=== PATIENT | male | born 1975 | race Caucasian/White ===

== ENCOUNTER 2024-08-05 12:05 | Outpatient (REF) | payer MEDICAID, SELFPAY ==
--- NOTE | ~2024-08-05 | XR_ITS ---
EXAMINATION: XR HAND, RIGHT. XR WRIST, RIGHT. CLINICAL INFORMATION: Injury COMPARISON: None. TECHNIQUE: 3 views of the right hand and wrist FINDINGS: Comminuted fracture of the 5th metacarpal head with volar/radial angulation and probable intra-articular extension into the 5th MCP joint. There are no additional fractures. XR/XR hand RT min 3V IMPRESSION: Comminuted fracture of the 5th metacarpal head with volar/radial angulation and probable intra-articular extension. Electronically signed by: Nathan Stallings MD 08/05/2024 03:06 PM EDT
== END 2024-08-05 12:06 | disposition home or self-care (01) ==
LOC: HO.HHCX 12:05
PROVIDERS: Visit Provider Emergency Medicine
DX: M79.641 Pain in right hand (principal); S69.91XD Unspecified injury of right wrist, hand and finger(s), subsequent encounter
CPT/HCPCS: 73130

== ENCOUNTER 2024-08-05 13:14 | Emergency (ER) | payer MEDICAID, SELFPAY ==
--- NOTE | ~2024-08-05 | XR_ITS ---
EXAMINATION: XR HAND, RIGHT. XR WRIST, RIGHT. CLINICAL INFORMATION: Injury COMPARISON: None. TECHNIQUE: 3 views of the right hand and wrist FINDINGS: Comminuted fracture of the 5th metacarpal head with volar/radial angulation and probable intra-articular extension into the 5th MCP joint. There are no additional fractures. XR/XR hand wrist RT IMPRESSION: Comminuted fracture of the 5th metacarpal head with volar/radial angulation and probable intra-articular extension. Electronically signed by: Nathan Stallings MD 08/05/2024 03:06 PM EDT
[2024-08-05 14:24] VITALS: BP 108/68; PULSE 76; RESP 20; TEMP 36.9; O2SAT 97; BMI 26.6
--- NOTE | 2024-08-05 14:24 | ED_ITS ---
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 Reports that 2 days ago he was walking not paying attention where he was going and tripped landing onto his right side with his hand hitting against the ground. He has localized swelling over the 5th MCP pain with movement of the digits. Denies numbness tingling or cold sensation to the hand. Denies history of prior injury to this hand. Reports he is right-hand dominant. Related Data Previous Rx's ?Medication ?Instructions ?Recorded oxycodone 5 mg tablet 5 mg PO Q6H PRN pain #7 tabs 08/05/24 Allergies Allergy/AdvReac Type Severity Reaction Status Date / Time No Known Allergies Allergy Verified 08/05/24 14:29 Review of Systems Review of Systems: Yes all other systems are reviewed and are negative [facility] Past Medical History Attestation statement: The following information was validated with the patient. Source: old records reviewed Social History Social History Advance Directives: No Advance Directives Information Provided: No Physical Exam ED Vital Signs: Vital Signs - 24 hr 08/05/24 14:24 08/05/24 19:28 Temperature 98.5 F 98.5 F Pulse Rate 76 76 Respiratory Rate 20 20 Blood Pressure 108/68 108/68 Pulse Oximetry 97 97 Oxygen Delivery Method Room Air Room Air BMI result Body Mass Index 26.6 Appearance: Alert.?Oriented to person, place and time. No acute distre ss.?Normal affect. Neck: Normal inspection.? Neck supple.?? CVS: Heart sounds normal. Normal heart rate and rhythm.? Pulses normal.?? Respiratory: No respiratory distress.? Lung sounds clear to auscultation bilaterally??? Skin: Skin warm and dry.? Normal skin color.? Extremities: Localized swelling over the 5th MCP with significant tenderness upon palpation. 2+ radial pulse Neuro: Moves all extremities spontaneously. Sensation intact bilaterally. Ambulates with normal steady gait. Course Course Course Narrative: This is a rapid medical exam performed by Ximena Rodgers NP: Additional HPI, ROS, PE not included below will be deferred to primary provider. Patient is a 49-year-old right hand dominant male presenting with pain to right hand and wrist. Fell into a hole on Saturday on outstretched hand. Plan: xrays Procedures Orthopedic Splinting/Casting Injury #1: Side: right Upper Extremity Injury Location: hand Upper Extremity Immobilizer: ulnar gutter Medical Decision Making Medical Decision Making MDM Narrative: Patient is a 49-year-old male presents emergency department for evaluation of traumatic right hand pain as per HPI. XR imaging obtained reveals a comminuted intra-articular fracture of the 5th metacarpal head with angulation. Reviewed reduction with patient he adamantly refuses to have any attempt at reduction at this time. Requesting casting and to be referred to orthopedics. Extremity is neurovascularly intact distally. Placed in an ulnar gutter splint as per procedural portion of this note tolerated well without complication remained neurovascularly intact distally after application. Discussed conservative treatment. Pain management; acetaminophen/ibuprofen, oxycodone for severe pain unrelieved by either, [employer] reviewed no conflicts. Differential Diagnosis Differential Diagnoses: The differential diagnosis associated with the presentation includes (Fracture, dislocation, sprain) Independent Interpretation I performed an independent interpretation of an: Plain X-Ray (Comminuted 5th metacarpal fracture) Radiology Impression Discussion of test interpretation with radiology: I have reviewed the radiologist's reading. Radiologist Impression: XR/XR hand wrist RT IMPRESSION: Comminuted fracture of the 5th metacarpal head with volar/radial angulation and probable intra-articular extension. External Record Review External record reviewed: Outpatient record Prescription Management I considered prescription management with: Pain Medication (See narrative above) Discharge Plan Discharge Clinical Impression: Fracture of fifth metacarpal bone of right hand Patient Disposition: Home, Self-Care Instructions: Hand Fracture (ED) Additional Instructions: You can take ibuprofen 200 mg, 3 tablets (600mg) every 6-8 hours as needed for pain, in addition to Tylenol 500 mg, 2 tablets (1,000mg) every 4-6 hours as needed for pain, but not to exceed 3 doses daily (3,000mg).? For pain that is unrelieved by ibuprofen/acetaminophen you may take oxycodone. This is a narcotic medication. It may make you drowsy. You should not drive, d rink alcohol, or work while taking this medication. Please contact the orthopedic office first thing tomorrow morning to arrange for a follow-up appointment with the hand specialist. The splint must remain in place at all times. It can not get wet. Prescriptions: New oxycodone 5 mg tablet 5 mg PO Q6H PRN (Reason: pain) Qty: 7 0RF Rx Instructions: Partial Fill upon patient request. Referrals: Magali Raymundo MD [Physician] - Interventions: ED Discharge Assessment Last Done: 08/05/24 19:28 Discharge Date/Time: 08/05/24 19:29 Print Language: Uzbek
[2024-08-05 19:28] VITALS: BP 108/68; PULSE 76; RESP 20; TEMP 36.9; O2SAT 97
== END 2024-08-05 19:29 | disposition home or self-care (01) ==
PROVIDERS: Emergency Provider Emergency Medicine
DX: S62.306A Unspecified fracture of fifth metacarpal bone, right hand, initial encounter for closed fracture (principal); M25.531 Pain in right wrist; M79.641 Pain in right hand; W01.0XXA Fall on same level from slipping, tripping and stumbling without subsequent striking against object, initial encounter; Y93.89 Activity, other specified; Y92.89 Other specified places as the place of occurrence of the external cause; Y99.8 Other external cause status
CPT/HCPCS: 29125; 73110; 73130; 99283; 99284

== ENCOUNTER 2024-08-11 13:13 | Outpatient (REF) | payer MEDICAID, SELFPAY ==
--- NOTE | ~2024-08-11 | XR_ITS ---
EXAMINATION: XR HAND, RIGHT CLINICAL INFORMATION: M79.641 - Pain in right hand COMPARISON: X-ray dated August 05, 2024. TECHNIQUE: PA, lateral, and oblique views of the right hand. FINDINGS: Submitted for interpretation on October 19, 2024. Cortical disruption resulting in borderline angulation at the distal diaphysis of the fifth metacarpal. The carpal bones are intact. The phalanges are intact. XR/XR hand RT min 3V IMPRESSION: Volar displaced fracture distal diaphysis fifth metacarpal, right hand. No gross change. Electronically signed by: Obie Cueva MD 10/19/2024 11:10 AM EST
== END 2024-08-11 13:14 | disposition home or self-care (01) ==
LOC: HO.HOSX 13:13
PROVIDERS: Visit Provider Orthopaedic Surgery
DX: M79.641 Pain in right hand (principal); S62.336A Displaced fracture of neck of fifth metacarpal bone, right hand, initial encounter for closed fracture; R20.0 Anesthesia of skin; R20.2 Paresthesia of skin
CPT/HCPCS: 73130; 99202

== ENCOUNTER → 2024-08-11 13:25 | Outpatient (BNV) | payer MEDICAID, SELFPAY | PROVIDERS: Visit Provider Radiology Diagnostic Radiology | DX: S62.306A Unspecified fracture of fifth metacarpal bone, right hand, initial encounter for closed fracture (principal) | CPT/HCPCS: 73130 ==

== ENCOUNTER 2024-08-11 13:44 | Outpatient (AMB) | payer MEDICAID, SELFPAY ==
[2024-08-11 14:40] VITALS: BMI 26.6
--- NOTE | 2024-08-11 14:40 | A.OFFVIS_ITS ---
Vital Signs 08/11/24 14:40 Height 5 ft 6 in Weight 165 lb BMI 26.6 Intake Visit Reasons: FC- fx of the 5th metacarpal head with angulation Intake Note: Vick is a 49 yo right hand dominant male who presents today for an ED follow up evaluation s/p right 5th metacarpal head fracture with angulation, DOI 08/03/24. Patient reports he was walking when he fell in a whole, landing on his right hand. Patient reports numbness and tingling on the ulnar aspect of the right hand as well as constant pain. He has been taking Ibuprofen for pain with minimal relief. Patient shared he fractured his right wrist when he was about 10 years old. Stitcher Tape Controlled Machine Required: Yes Stitcher Tape Controlled Machine Language: Catcher Plug Services: Stitcher Tape Controlled Machine Present Stitcher Tape Controlled Machine Name: LINWOOD Uriarte/HIMANSHU Allergies No Known Allergies Allergy (Verified 08/11/24 15:00) HPI HPI FC- fx of the 5th metacarpal head with angulation: Details: Vick is a 49 year old right hand dominant Moldovan speaking man who presents for a right 5th metacarpal fracture. He fell and landed injuring his right hand, DOI: 08/03/24. He was seen in the ED on 08/05/24 and placed in a splint. He complains of constant pain & new numbness in the ulnar aspect of his hand. [facility] Social History (Updated 08/11/24 @ 15:06 by LINWOOD Olmedo) Current occupation: rt handed Review of Systems Const All systems reviewed & are unremarkable except as noted in HPI and below Physical Exam Vital Signs: BMI result Body Mass Index 26.6 Const General: cooperative, healthy appearing and no acute distress Orientation/consciousness: patient oriented x3 HEENT Head: Yes normocephalic and Yes atraumatic Eyes EOM: EOMs intact bilaterally Resp Effort & Inspection: normal respiratory effort and able to speak in complete sentences Cardio Jugular venous distension: no JVD Skin General skin exam: turgor normal Rashes: no rashes Neuro General: patient oriented x3 Extrem Other: Evaluation of Right Upper Extremity: The patient is alert, oriented, and in no acute distress Neuro: Median, Ulnar, Radial nerves motor and sensory intact and sensation is normal to the tips of all digits Vascular: Cap refill brisk ROM: He can [ ] Rotational mal-alignment, with the small finger held out in ABduction, and he is unable to move this much ~45 degrees apex dorsal angulation of the 5th metacarpal General: No Erythema or evidence of infection. Most tender over the 5th metacarpal head Tender over 5th CMC joint Tender over proximal aspect of wrist Radiographs: 3 views of the right hand were taken and viewed by me today in clinic. They show a 5th metacarpal neck fracture with ~45 degrees apex dorsal angulation & rotational mal-alignment, with a supination deformity of ~15 degrees. Psych Appearance: grossly normal Affect: normal affect Attitude: cooperative Assessment & Plan Assessment & Plan (1) Closed fracture of neck of fifth metacarpal bone of right hand: Code(s): S62.336A - Displaced fracture of neck of fifth metacarpal bone, right hand, initial encounter for closed fracture Category: Medical (2) Numbness and tingling in right hand: Code(s): R20.0 - Anesthesia of skin; R20.2 - Paresthesia of skin Category: Medical Plan Assessment & Plan: 1. Right 5th metacarpal neck fracture, with ~45 degrees apex dorsal angulation, rotational mal-alignment, and ~15 degrees supination deformity From a fall, DOI: 08/03/24 I educated him about this condition I discussed operative and non-operative treatment options I recommend surgery, and he is in agreement He was fitted for an ulnar gutter splint, to be worn until his DOS I discussed activity modification, he is to lift nothing heavier than a cellphone at this time The risks and benefits of operative treatment were discussed with the patient and the patient wishes to proceed with surgery. These risks include, but are not limited to risk of damage to blood vessels, nerves, tendons, infection, recurrence, incomplete relief of preoperative symptoms, persistent pain, possible need for further surgery and the risks associated with regional blocks and anesthesia. The plan is to take the patient to the operating room sometime in the next week for the following procedures: 1. Right 5th metacarpal ORIF, under general All of the preoperative paperwork including the consent was reviewed today. All the patient's questions were answered. The patient understands that they will be contacted by our work manager soon to schedule this procedure He denies Diabetes, blood thinners, asthma, heart, lung, kidney issues Scribed for Magali Raymundo MD by Sukumar Brink medical administrator, on 08/11/24 at 3:35 PM, EST. Orders: Orders XR hand RT min 3V 08/11/24 M79.641 - Pain in right hand Medications: Discontinued oxycodone Partial Fill upon patient request. Discontinued Reason: Patient no longer taking 5 mg PO Q6H PRN 7 tabs 0RF pain Coding Level of Care Code New Pt Level 4 (70230) Diagnoses Closed fracture of neck of fifth metacarpal bone of right hand S62.336A Numbness and tingling in right hand R20.0; R20.2
== END 2024-08-11 16:06 | disposition home or self-care (01) ==
PROVIDERS: Visit Provider Orthopaedic Surgery
DX: S62.336A Displaced fracture of neck of fifth metacarpal bone, right hand, initial encounter for closed fracture (principal); R20.0 Anesthesia of skin; R20.2 Paresthesia of skin
CPT/HCPCS: 99204

== ENCOUNTER 2025-02-09 16:07 | Emergency (ER) | payer MEDICAID, SELFPAY ==
--- NOTE | ~2025-02-09 | CT_ITS ---
CLINICAL HISTORY: LLQ L flank pain, N V CT abdomen and pelvis without IV contrast. COMPARISON: None FINDINGS: Partially visualized lung bases are unremarkable. Normal gallbladder. Noncontrast appearance of the liver, spleen, pancreas adrenal glands are unremarkable. No right-sided hydronephrosis. No right renal or ureteral calculus. Moderate left hydronephrosis. Nonobstructing 5 mm left renal calculus. Mild proximal left hydroureter. In the proximal left ureter there is a 3 mm ureteral calculus. More distal left ureter is contracted. Normal appendix. Mild distal colonic diverticulosis without evidence of diverticulitis. Moderate to large amount of stool present within the distal sigmoid colon and rectum. No mesenteric or retroperitoneal lymphadenopathy. Normal abdominal aorta. Urinary bladder is contracted. No inguinal lymphadenopathy. Small fat containing umbilical hernia. No acute fracture or suspicious bone lesion. IMPRESSION: 1. Proximal left ureteral 3 mm calculus causes mild left hydroureter and moderate left hydronephrosis. 2. Additional nonobstructing 5 mm left renal calculus. 3. Fhengjkl-ih-swojp amount of stool present within the distal sigmoid colon and rectum. A component of fecal impaction may be present. This document has been electronically signed by: Julián Garcia MD on 02/09/2025 18:01:10
[2025-02-09 16:14] VITALS: BP 172/92; PULSE 62; O2SAT 97
[2025-02-09 16:17] VITALS: BP 107/45; PULSE 70; RESP 20; TEMP 36.6; O2SAT 97; BMI 27.1
--- NOTE | 2025-02-09 16:25 | ED.ABDPAIN ---
HPI - Abdominal Pain General Chief Complaint: Abdominal Pain Stated Complaint: ABD pain, yellow vomit Time Seen by Provider: 02/09/25 16:15 Source: patient, EMS, RN notes reviewed and old records reviewed Mode of arrival: EMS History of Present Illness ED Provider: Katya Escobar PA-C HPI narrative: 49-year-old male no significant past medical history presenting to the ED via EMS complaining of left-sided abdominal pain radiating to back with associated nausea and vomiting x 2 days. Denies similar symptoms in the past. Denies fever, chills, diarrhea/constipation, dysuria/hematuria Related Data Home Medications ?Medication ?Instructions ?Recorded ?Confirmed albuterol sulfate 90 mcg/actuation 2 puff inhalation Q4H PRN sob 08/14/24 aerosol inhaler (Ventolin HFA) nicotine 7 mg/24 hr daily 1 patch topical QAM 08/14/24 transdermal patch oxycodone 5 mg tablet 5 mg PO Q6H PRN pain 08/14/24 prednisone 20 mg tablet 40 mg PO DAILY 08/14/24 Previous Rx's ?Medication ?Instructions ?Recorded hydrocodone 5 mg-acetaminophen 325 1 tab PO Q8H PRN pain, severe 3 02/09/25 mg tablet days #9 tabs naproxen 500 mg tablet 500 mg PO BID PRN pain 10 days #20 02/09/25 tabs polyethylene glycol 3350 17 17 g PO DAILY #119 grams 02/09/25 gram/dose oral powder (Miralax) sodium phosphates 19 gram-7 118 ml [place] BEDTIME PRN constipation 02/09/25 gram/118 mL enema (Fleet Enema) #532 mL tamsulosin 0.4 mg capsule (Flomax) 0.4 mg PO DAILY #14 caps 02/09/25 Allergies Allergy/AdvReac Type Severity Reaction Status Date / Time No Known Allergies Allergy Verified 02/09/25 16:19 Review of Systems Review of Systems Yes all other systems are reviewed and are negative Constitutional: Reports as per [facility] Past Medical History Attestation statement: The following information was validated with the patient. Source: old records reviewed Social History Social History Advance Directives: No Advance Directives Information Provided: No Current occupation: rt handed Physical Exam ED Vital Signs: Vital Signs - 24 hr 02/09/25 16:17 02/09/25 18:03 02/09/25 18:52 Temperature 97.9 F Pulse Rate 70 Respiratory Rate 20 20 20 Blood Pressure 107/45 L Pulse Oximetry 97 Oxygen Delivery Method Room Air BMI result Body Mass Index 27.1 Const General: cooperative, healthy appearing and no acute distress Orientation/consciousness: patient oriented x3 Limitations: no limitations HENMT Head: Yes normal to inspection and Yes atraumatic Ears: hearing grossly normal bilaterally General nose exam: Normal external nose present Face and sinus: Yes normal facial exam Eyes General: appearance normal, both eyes and all related structures EOM: EOMs intact bilaterally Neck Neck: Yes normal visual inspection and Yes no meningeal signs Resp Effort & Inspection: normal respiratory effort and no respiratory distress Auscultation: clear to auscultation bilaterally Cardio Rate: regular rate Heart sounds: S1 normal heart sound present and S2 normal heart sound present GI Inspection: Yes normal to inspection Palpation (GI): Soft to palpation, Tenderness to palpation present (GI) in the LLQ; with no rebound tenderness, no guarding and not rigid General: Yes CVA tenderness on the left Back/Spine/Pelvis Back: CVA tenderness Skin Rashes: no rashes Wounds: no wounds Neuro General: patient oriented x3, tone normal and no meningeal signs Cranial nerves: Yes CN's II-XII intact bilaterally Gait exam (Neuro): Normal gait present Extrem General: Yes normal to inspection Course Course Course Narrative: -1815--leukocytosis of 13. Labs otherwise reassuring CT abdomen pelvis wo IV con IMPRESSION: 1. Proximal left ureteral 3 mm calculus causes mild left hydroureter and moderate left hydronephrosis. 2. Additional nonobstructing 5 mm left renal calculus. 3. [id number]-[id number] amount of stool present within the distal sigmoid colon and rectum. A component of fecal impaction may be present. > on re-evaluation patient reports continued discomfort. Will give additional morphine. Discussed stool burden and fecal impaction however patient not agreeable to disimpaction/rectal exam at this time. Discussed importance of having BMs. Recommended enema, MiraLax at home and if he does not have BM in the next 48 hours to return to the ED immediately Discussed needed urology follow-up. Will discharge with Flomax and pain control. 1899--ED care transferred to BUILDING DRAFTING OFFICER [place] pending UA and re-evaluation. Anticipated dispo. Medical Decision Making Medical Decision Making [facility] Narrative: 49-year-old male no significant past medical history presenting to the ED via EMS complaining of left-sided abdominal pain radiating to back with associated nausea and vomiting x 2 days. On exam vital signs stable, NAD, appears uncomfortable, writhing around in stretcher, abdomen is soft with LLQ tenderness and left CVAT, no rebound or guarding. Concern for renal stone vs UTI/pyelo vs diverticulitis. Lower suspicion for appendicitis, testicular torsion, cholecystitis/lithiasis or pancreatitis at this time Plan: Labs, UA, CT AP, IVF, symptomatic remedies, re-evaluate Please refer to course for remaining clinical decision making, interpretation of labs/imaging results, and discussions with consultants and/or family members. Differential Diagnosis Differential Diagnoses: The differential diagnosis associated with the presentation includes As above Admission/Observation Consideration of admission/observation: Escalation of care including admission/observation considered Lab Data [facility] Lab Attestation statement: I reviewed the patient's lab results. 02/09/25 16:48 02/09/25 16:48 Labs: Lab Results 02/09/25 Range/Units 16:48 WBC 13.0 H (4.8-10.8) X10*3/uL RBC 4.65 (4.60-5.80) X10*6/uL Hgb 14.7 (14.0-18.0) g/dl Hct 43.2 (42.0-52.0) % MCV 92.9 (80.0-98.0) fL MCH 31.6 (27.0-33.0) pg MCHC 34.0 (31.0-36.0) g/dl RDW 13.1 (11.0-16.0) % Plt Count 248 (160-400) X10*3/uL MPV 8.4 L (9.4-12.4) fL Immature Gran % (Auto) 0.3 (0.0-0.4) % Neut % (Auto) 90.4 H (45-73) % Lymph % (Auto) 5.9 L (20-40) % [place] % (Auto) 3.0 (2-11) % Eos % (Auto) 0.1 (0-4) % Baso % (Auto) 0.3 (0-2) % Lymph # (Auto) 0.8 L (1.2-4.9) X10*3/uL [place] # (Auto) 0.4 (0.1-1.2) X10*3/uL Eos # (Auto) 0.0 (0.0-0.4) X10*3/uL Baso # (Auto) 0.0 (0.0-0.2) X10*3/uL Abs Immat Gran (auto) 0.04 H (0.00-0.03) X10*3/uL Absolute Neuts (auto) 11.7 H (2.0-8.3) x10*3/uL Absolute Nucleated RBC 0.000 (0.0-0.012) X10*3/uL Nucleated RBC % (auto) 0.0 (0.0-0.2) /100WBC Smear Tech's Comments VERIFIED Sodium 138 (135-145) mmol/L Potassium 4.0 (3.3-5.1) mmol/L Chloride 107 (96-108) mmol/L Carbon Dioxide 25 (22-29) mmol/L Anion Gap 10 L (12-20) BUN 17 H (9-16) mg/dL Creatinine 1.02 (0.5-1.4) mg/dL Estim Creat Clear Calc 79.9 Estimated GFR > 60 Random Glucose 132 H (60-115) mg/dL Calcium 9.4 (8.4-10.2) mg/dL Magnesium 2.1 (1.6-2.6) mg/dL Total Bilirubin 0.3 (0.0-1.0) mg/dL Direct Bilirubin 0.1 (0.0-0.5) mg/dL AST 25 (5-37) U/L ALT 16 (0-40) U/L Alkaline Phosphatase 57 (39-117) U/L Total Protein 7.8 (6.5-8.0) g/dL Albumin 4.4 (3.5-5.0) g/dL Lipase 13 (8-78) U/L Independent Interpretation I performed an independent interpretation of an: CT Scan Radiology Impression Discussion of test interpretation with radiology: I have reviewed the radiologist's reading. Independent Historian Clinical information obtained from an independent historian. History obtained from or confirmed by: EMS External Record Review External record reviewed: Inpatient record, Office record, Outpatient record, Prior outpatient labs, Prior outpatient radiology, Primary care record and Outside ED record Tests considered The following testing was considered but not selected: As above Prescription Management I considered prescription management with: Pain Medication Chronic Conditions Patient?s care impacted by: Other Social Determinants Patient?s care significantly limited by Social Determinants of Health including: Other Social Determinant of Health Medications Administered Discontinued Medications Generic Name Dose Route Start Last Admin Trade Name Freq PRN Reason Stop Dose Admin Sodium Chloride 1,000 mls @ 999 mls/hr 02/09/25 16:45 02/09/25 17:51 Ns IV 02/09/25 17:45 Infused .Q1H1M FLORENCIO Infusion Ketorolac Tromethamine 15 mg 02/09/25 16:34 02/09/25 16:50 Ketorolac Tromethamine 15 Mg/Ml Vial IVPUSH 02/09/25 16:35 15 mg ONCE ONE Administration Morphine Sulfate 2 mg 02/09/25 18:00 02/09/25 18:03 Morphine Sulfate 2 Mg/Ml Cartridge IVPUSH 02/09/25 18:01 2 mg ONCE ONE Administration Protocol Morphine Sulfate 2 mg 02/09/25 18:36 02/09/25 18:52 Morphine Sulfate 2 Mg/Ml Cartridge IVPUSH 02/09/25 18:37 2 mg ONCE ONE Administration Protocol Ondansetron HCl 4 mg 02/09/25 16:34 02/09/25 16:50 Ondansetron Hcl 4 Mg/2 Ml Vial IVPUSH 02/09/25 16:35 4 mg ONCE ONE Administration Polyethylene Glycol 17 gm 02/09/25 18:36 02/09/25 18:52 Polyethylene Glycol 3350 17 Gm Powd.Pack PO 02/09/25 18:37 17 gm ONCE ONE Administration Tamsulosin HCl 0.4 mg 02/09/25 18:36 02/09/25 18:52 Tamsulosin Hcl 0.4 Mg Capsule PO 02/09/25 18:37 0.4 mg ONCE ONE Administration Discharge Plan Discharge Clinical Impression: Left ureteral stone, Constipation, Fecal impaction, Hydroureteronephrosis Patient Disposition: Still a Patient Instructions: Constipation (DC), Hydronephrosis (ED), Fecal Impaction (ED), Ureteral Stones (ED) Additional Instructions: You have a 3 mm proximal left ureter stone that is causing back flow of urine to your kidney. You also have a nonobstructing 5 mm stone inside your left kidney Flomax will help dilate the ureter to aid in passing Naproxen as an anti-inflammatory pain medication, take with food Pray as an opiate pain medication, take only when pain is severe for the next 3 days YOU NEED TO FOLLOW UP WITH UROLOGY FOR YOUR KIDNEY STONES, CALL TO MAKE AN APPOINTMENT If her symptoms persist or worsen, pain becomes unbearable, you have fever, nausea/vomiting or you are unable to urinate return to the ED immediately YOU ALSO HAVE LARGE AMOUNT OF STOOL/CONSTIPATION APPRECIATED ON CAT SCAN WELL A FECAL IMPACTION. Use enemas and MiraLax at home as discussed. If you do not have a bowel movement in the next 48 hours you need to be re-evaluated. If you stop passing gas return to the ED immediately This may need to be manually removed, this was offered in the emergency department however you declined Prescriptions: New hydrocodone-acetaminophen 5-325 mg tablet 1 tab PO Q8H PRN (Reason: pain, severe) 3 Days Qty: 9 0RF Rx Instructions: Partial Fill upon patient request. tamsulosin [Flomax] 0.4 mg capsule 0.4 mg PO DAILY Qty: 14 0RF naproxen 500 mg tablet 500 mg PO BID PRN (Reason: pain) 10 Days Qty: 20 0RF Fleet Enema 19-7 gram/118 mL enema 118 ml [place] BEDTIME PRN (Reason: constipation) Qty: 532 0RF polyethylene glycol 3350 [Miralax] 17 gram/dose powder 17 g PO DAILY Qty: 119 0RF No Action prednisone 20 mg tablet 40 mg PO DAILY albuterol sulfate [Ventolin HFA] 90 mcg/actuation HFA aerosol inhaler 2 puff INHALATION Q4H PRN (Reason: sob) nicotine 7 mg/24 hr patch 24 hour 1 patch topical QAM oxycodone 5 mg tablet 5 mg PO Q6H PRN (Reason: pain) Referrals: [facility] [place] [facility] [Provider Group] - 1 week Center,[facility] [Primary Care Provider] - 3 days Print Language: Sinhala
[2025-02-09] MEDS: 0.9 % Sodium Chloride 1,000 ML 999 ML IV (16:50)
[2025-02-09] MEDS: ondansetron HCL 4 MG/2 ML VIAL IVPUSH (16:50)
[2025-02-09] MEDS: Ketorolac Tromethamine 15 MG/ML VIAL IVPUSH (16:50)
[2025-02-09 16:56] LABS: Basophils Percent Auto 0.3 % (0-2); Eosinophils Percent Auto 0.1 % (0-4); Hematocrit 43.2 % (42.0-52.0); Hemoglobin 14.7 g/dl (14.0-18.0); Imm Gran Abs Auto 0.04 X10*3/uL (0.00-0.03); Imm Gran Pct Auto 0.3 % (0.0-0.4); Lymphocytes Absolute Auto 0.8 X10*3/uL (1.2-4.9); Lymphocytes Percent Auto 5.9 % (20-40); MANUAL DIFF FLAG SCAN; Mean Corpuscular Hemoglobin 31.6 pg (27.0-33.0); Mean Corpuscular Volume 92.9 fL (80.0-98.0); Mean Platelet Volume 8.4 fL (9.4-12.4); Monocytes Absolute Auto 0.4 X10*3/uL (0.1-1.2); Neutrophils Absolute Auto 11.7 x10*3/uL (2.0-8.3); Neutrophils Percent Auto 90.4 % (45-73); Platelet Count 248 X10*3/uL (160-400); Red Blood Count 4.65 X10*6/uL (4.60-5.80); Red Cell Distribution Width 13.1 % (11.0-16.0); SCAN SMEAR FLAG 1
[2025-02-09 17:11] LABS: Alanine Aminotransferase 16 U/L (0-40); Albumin Level 4.4 g/dL (3.5-5.0); Alkaline Phosphatase 57 U/L (39-117); Anion Gap 10 (12-20); Aspartate Amino Transferase 25 U/L (5-37); Bilirubin Direct 0.1 mg/dL (0.0-0.5); Bilirubin Total 0.3 mg/dL (0.0-1.0); Blood Urea Nitrogen 17 mg/dL (9-16); Calcium 9.4 mg/dL (8.4-10.2); Carbon Dioxide 25 mmol/L (22-29); Chloride 107 mmol/L (96-108); Creatinine Clr Calc Pharmacy 79.9; Estimated Glomerular Filt Rate > 60; Glucose Random 132 mg/dL (60-115); Lipase 13 U/L (8-78); Magnesium 2.1 mg/dL (1.6-2.6); Sodium 138 mmol/L (135-145); Total Protein 7.8 g/dL (6.5-8.0)
[2025-02-09 18:03] VITALS: RESP 20
[2025-02-09] MEDS: Morphine Sulfate 2 MG/ML CARTRIDGE IVPUSH ×2 (18:03→18:52)
[2025-02-09 18:12] LABS: SLIDE REVIEW VERIFIED
[2025-02-09 18:52] VITALS: RESP 20
[2025-02-09] MEDS: polyethylene glycoL 3350 17 GM POWD.PACK PO (18:52)
[2025-02-09] MEDS: Tamsulosin HCL 0.4 MG CAPSULE PO (18:52)
--- NOTE | 2025-02-09 20:26 | PC.NURSE ---
Urine specimen collected and sent for analysis. Awaiting results.
[2025-02-09 20:33] LABS: Appearance Urine Cloudy; Color Urine Dark Yellow; Glucose Urine UA Negative (Negative); Leukocyte Esterase Urine Small (1+) (Negative); Nitrite Urine Negative (Negative); PH 6.5 (5.0-9.0); Specific Gravity - Urine >= 1.030 (1.005-1.025); UMIC TRIGGER UACC YES; Urine Blood Large (3+) (Negative); Urine Ketones 15 mg/dL (Negative); Urine Protein 100 (2+) mg/dL (Neg-Trace)
--- NOTE | 2025-02-09 20:37 | PC.NURSE ---
Patient is constipated, refused manual disimpaction with provider. Also has 2 renal calculi. Pain is increasing. [facility] notified.
[2025-02-09] MEDS: oxyCODONE HCl Immed Release 5 MG TABLET PO (21:00)
[2025-02-09 21:54] LABS: Bacteria Urine None Seen (None Seen); Hyaline Casts Urine 0-2 /LPF (0-2); RBC Urine >20 /HPF (0-2); Squamous Epithelial Cell Urine 0-2 /HPF (0-2); UACC Culture Trigger YES
--- NOTE | 2025-02-09 21:58 | PC.NURSE ---
pt appears to be sleeping at this time. rise and fall of chest noted, respirations even and unlabored.
[2025-02-09 22:22] VITALS: BP 118/70; PULSE 68; RESP 17; TEMP 36.8; O2SAT 97
[2025-02-09 22:52] VITALS: BP 118/70; PULSE 68; RESP 17; TEMP 36.8; O2SAT 97
== END 2025-02-09 23:07 | disposition home or self-care (01) ==
PROVIDERS: Physician Assistant; Emergency Provider Emergency Medicine Emergency Medical Services
DX: N13.1 Hydronephrosis with ureteral stricture, not elsewhere classified (principal); K56.41 Fecal impaction; R10.32 Left lower quadrant pain; R11.2 Nausea with vomiting, unspecified; R10.9 Unspecified abdominal pain; Z79.899 Other long term (current) drug therapy
CPT/HCPCS: 36415; 74176; 80048; 80076; 81001; 83690; 83735; 85025; 87086; 96361; 96374; 96375; 96376; 99285; J1885; J2270; J2405

== ENCOUNTER → 2025-02-09 16:34 | Outpatient (BNV) | payer MEDICAID, SELFPAY | PROVIDERS: Emergency Provider Emergency Medicine Emergency Medical Services; Visit Provider Radiology Diagnostic Radiology | DX: N13.2 Hydronephrosis with renal and ureteral calculous obstruction (principal); K56.41 Fecal impaction | CPT/HCPCS: 74176 ==

== ENCOUNTER 2025-03-15 14:16 | Emergency (ER) | payer MEDICAID, SELFPAY ==
--- NOTE | ~2025-03-15 | CT_ITS ---
EXAMINATION: CT HEAD AND FACIAL BONES WITHOUT CONTRAST CLINICAL INFORMATION: Fall with facial trauma. COMPARISON: None TECHNIQUE: Contiguous axial imaging was performed from the skull base to vertex, as well as the maxillofacial bones/mandible without intravenous administration of contrast. Multiplanar reformatted imaging was constructed from the axial data set. This CT examination was performed using dose optimization techniques as appropriate, variously including the following: *Automated exposure control *Adjustment of mA and/or kV according to patient size (this includes techniques or standardized protocols for targeted exams where dose is matched to indication/reason for exam; i.e. extremities or head) *Use of iterative reconstruction technique CT HEAD: There is no evidence of intracranial hemorrhage or extra-axial fluid collection. There is no mass effect, or edema. No CT evidence of acute territorial infarct. Ventricles, sulci, and cisterns are normal in size and configuration for patient age. No hydrocephalus. No midline shift. Negative hyperdense MCA sign. Negative insular ribbon sign. No significant white matter abnormalities. Normal pituitary. Globes and orbital contents image normally. There is left periorbital and inferior frontal scalp soft tissue swelling. The calvarium and skull base are intact without fracture. CT MAXILLOFACIAL BONES: The mandible is intact without fracture. The TM joints are normally oriented. The nasal bones, nasal process, maxilla, orbits, zygomatic arches, pterygoid plates, and sphenoid bone are intact without fracture. No significant nasal septal deviation. Paranasal sinuses demonstrate chronic appearing complete opacification of the left maxillary antrum, with extension of soft tissue into the left middle meatus, findings which could represent an antrochoanal polyp or inflammatory polypoid sinus disease. There is erosion of the anterior membranous nasal septum, typically associated with cocaine abuse. Chronic appearing opacification of the left anterior posterior ethmoid sinuses and left frontal recess, with mild thickening and sclerosis of the sinus joshua. No paranasal sinus fractures. The mastoids and tympanic cavities are normally aerated. There is maxillary dental disease present with periapical lucencies surrounding teeth #2, retained root tips of #3, #14 and 15. There are scattered carious lesions. No definite mandibular periapical lucencies. Imaged maxillofacial/neck soft tissues appear normal. CT/CT facial bones wo IV con IMPRESSION: NONCONTRAST HEAD CT: 1. No acute intracranial abnormality. No fractures involving the calvarium or skull base. MAXILLOFACIAL CT: 1. Left periorbital soft tissue swelling extending to overlie the left frontal scalp. 2. There are no orbital, maxillofacial, or mandibular fractures identified. 3. There is evidence of chronic opacification of the left maxillary and ethmoid sinuses, and left frontal recess. There is thickening and sclerosis of the sinus joshua indicating chronicity. Erosion of the medial maxillary sinus wall with extension of polypoid soft tissue into the middle meatus of the nasal cavity. Findings could represent antrochoanal polyp or polypoid inflammatory sinus disease. 4. There is erosion of the anterior membranous nasal septum, commonly seen with cocaine abuse. 5. There is maxillary dental disease, with periapical lucencies surrounding the root tips of the #2, #3, #14, and #15. There are scattered carious lesions. Electronically signed by: Luis Mcclelland MD 03/15/2025 04:23 PM EDT
[2025-03-15 14:21] VITALS: BP 121/85; PULSE 98; O2SAT 98
[2025-03-15 14:27] VITALS: BMI 28.6
[2025-03-15 15:08] VITALS: BP 122/79; PULSE 93; RESP 18; TEMP 36.9; O2SAT 97
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
[2025-03-15] MEDS: Diphth,Pertus(ACell),Tet Adult 0.5 ML SYRINGE IM (15:46)
[2025-03-15 17:57] VITALS: BP 122/79; PULSE 93; RESP 18; TEMP 36.9; O2SAT 97
--- OUTSIDE RECORDS SUMMARY | 2025-03-15 18:13 | XMS_ITS | Clinical Summary ---
Author Organization [employer] Address [address] [facility] [address] [place] [address] Care Team Providers Care Highway Worker Name Role Phone Unavailable Primary Care Provider Unavailabl e Allergies No known active allergies Medications nicotine (Nicoderm CQ) 14 MG/24HR patch Place 1 patch on the skin 1 (one) time each day at the same time. 42 patch 4 Active nicotine (Nicoderm CQ) 7 MG/24HR patch Place 1 patch on the skin 1 (one) time each day at the same time. 14 patch 4 Active nicotine polacrilex (Nicorette) 4 MG gum Chew 1 each (4 mg) if needed for smoking cessation. 100 each 4 Active Spacer/Aero-Holdi ng Chambers (Compact Space Chamber) device USE WITH VENTOLIN DIRECTED 1 each 5 Active albuterol (Ventolin HFA) 108 (90 Base) MCG/ACT inhalerIndication s:Mild intermittent asthma without complication Inhale 2 puffs every 6 (six) hours if needed for wheezing or shortness of breath. 18 g 2 5 05/12/20 25 Active Active Problems Problem Noted Date Diagnosed Date Tobacco dependence 08/05/2024 Encounters Date Type Department Care Team Description 03/02/2025 Patient Outreach [facility] [address] [place] [address] Amadou Luna CNP Pre-visit Planning (SDOH negative, Tobacco screening negative.) 02/25/2025 Telephone [facility] [address] [place] [address] Amadou Luna CNP Chart Prep 02/12/2025 Telephone [facility] [address] [place] [address] John Guajardo MD New pt appt 02/12/2025 Telephone [facility] [address] [place] [phone] John Guajardo MD 02/11/2025 9:40 AM EDT Office Visit [facility] [address] [place] [phone] Victor M Lr MD Nephrolithiasis (Primary Dx); Mild intermittent asthma without complication; Constipation, unspecified constipation type 02/10/2025 Telephone [facility] [address] [place] [address] John Guajardo MD telephone call 02/09/2025 Orders Only GENERIC EXTERNAL DATA DEPARTMENT Provider, Generic External Data 01/29/2025 Population Health Risk Score [facility] ([facility]) Department [address] [place] [phone] Provider, Population Health Generic 01/28/2025 Patient Outreach [facility] [address] [place] [phone] Cammy Ortega MD Pre-visit Planning ((Unable to reach for PVP screening, LVM)) from Last 3 Months Social History Tobacco Use Types Packs/Day Years Used Date Smoking Tobacco: Every Day Cigarettes Smokeless Tobacco: Never Tobacco Cessation:Ready to Q uit: Yes; Counseling Given: Not Answered Alcohol Use Standard Drinks/Week Comments Not Currently 0 (1 standard drink = 0.6 oz pur e alcohol) Housing Stability Answer Date Recorded What is your housing situation today? I have janieshawna williamson 03/02/[address] you li ve. Do you have problems with any of the following? None of the above 03/02/2025 Food Insecurity Answer Date Recorded Within the past 12 months, y ou worried that your food would run out before you got money to buy more: Never True 03/02/2025 Within the past 12 months,th e food you bought just didn't last and you didn't have enough money to get more: Never True Transportation Answer Date Recorded In the past 12 months, has l ack of transportation kept you from medical appts, meetings, work or from getting things needed for daily living? No 03/02/2025 Utilities Answer Date Recorded In the past 12 months, has t he electric, gas, oil or water company threatened to shut off services in your home? No 03/02/2025 Internet Access Answer Date Recorded Internet Access Q1 Yes 03/02/2025 Internet Access Q2 Not on file 03/02/2025 Sex and Gender Information Value Date Recorded Sex Assigned at Male 09/17/2022 10:17 AM EDT Legal Sex Male 10:17 AM EDT Gender Identity Male 08/05/2024 10:44 AM EDT Sexual Orientation Straight 08/05/2024 10 :44 AM EDT Last Filed Vital Signs Vital Sign Reading Time Taken Comments Blood Pressure 132/75 02/11/2025 9:29 AM EDT Pulse 102 02/11/2025 9:29 AM EDT Temperature 36.7 ??C (98.1 ??F) 02/11/2025 9:29 AM ED T Respiratory Rate 20 02/11/2025 9:29 AM EDT Oxygen Saturation 96% 02/11/2025 9:29 AM EDT Inhaled Oxygen Concentration - - Weight 76.2 kg (168 lb) 02/11/2025 9:29 AM EDT Height 167.6 cm (5' 6 ) 08/05/2024 11:10 AM EDT Body Mass Index 27.12 08/05/2024 11:10 AM EDT Plan of Treatment Health Maintenance Due Date Last Done Comments CT Colonography 1976 Colonoscopy 1976 Colorectal Cancer Screening 1976 Depression Screening 1976 FIT DNA/Cologuard 1976 FIT 1976 FOBT 1976 HIV Screening 1976 Lipid Panel 1976 Sigmoidoscopy 1976 Alcohol/Substance Use Screening 1988 Family Planning (PISQ) 1991 Hepatitis C Screening 1994 DTaP/Tdap/Td Vaccines (1 - Tdap) 1995 Hepatitis B Vaccines (1 of 3 - 19+ 3-dose series) 1995 Pneumococcal Vaccine: Pediat rics (0 to 5 Years) and At-Risk Patients (6 to 49) Years) (1 of 2 - PCV) 1995 COVID-19 Vaccine (2023-2 5 season) 2024 Influenza Vaccine (#1) 2024 Tobacco Screening 08/05/2025 08/05/2024 SDOH Screening 03/02/2026 03/02/2025 Zoster Vaccines (1 of 2) 2026 RSV Patients and Pa tients Aged 60 years or older (1 - 1-dose 75+ series) 2051 HIB Vaccines Aged Out No longer eligi ble based on patient's age to complete this topic HPV Vaccines Aged Out No longer eligi ble based on patient's age to complete this topic Hepatitis A Vaccines Aged Out No long er eligible based on patient's age to complete this topic IPV Vaccines Aged Out No longer eligi ble based on patient's age to complete this topic Meningococcal Vaccine Aged Out No neri alice eligible based on patient's age to complete this topic RSV under 20 months Aged Out No longe r eligible based on patient's age to complete this topic Rotavirus Vaccines Aged Out No longer eligible based on patient's age to complete this topic Procedures Procedure Name Priority Date/Time Associated Diagnosis Comments CULTURE, URINE, ROUTINE Routine 02/09/2025 9:55 PM EDT URINALYSIS, COMPLETE, WITH REFLEX TO CULTURE Routine 02/09/2025 8:[address] ABDOMEN PELVIS WO CONTRAST Routine 02/09/2025 6:01 PM EDT SLIDE REVIEW Routine 02/09/2025 4:48 PM EDT LIPASE Routine 02/09/2025 4:48 PM EDT MAGNESIUM Routine 02/09/2025 4:48 PM EDT BASIC METABOLIC PANEL Routine 02/09/2025 4:48 PM EDT HEPATIC FUNCTION PANEL Routine 02/09/2025 4:48 PM EDT CBC WITH AUTO DIFFERENTIAL Routine 02/09/2025 4:48 PM EDT from Last 3 Months Results * Culture, Urine, Routine (02/09/2025 9:55 PM EDT) Urine Urine specimen obtained by clean catch procedure / Unknown 02/09/2025 9:55 PM EDT 02/09/2025 9:55 PM EDT Comment:[facility] - 02/11/2025 11:15 AM EDT Urine Culture No growth. Specimen Source: Urine clean catch us Generic External Data Provider LAB MICROBIOLOGY - GENERAL ORDERABLES Final Result [facility] [address] [place] [phone] * (ABNORMAL) Urinalysis, Complete, with Reflex to Culture (02/09/2025 8:17 PM EDT) Color Urine Dark Yellow [facility] Appearance Urine Cloudy [facility] PH 6.5 5.0 - 9.0 [facility] Glucose Urine UA Negative Negative mg/dL [facility] Urine Blood Large (3+)(A) Negative [facility] Specific [place] - Urine >=1.030(H) 1.005 - 1.025 [facility] Urine Protein 100 (2+)(A) Neg-Trace mg/dL [facility] Urine Ketones 15 Negative mg/dL [facility] Nitrite Urine Negative Negative [facility] Leukocyte Esterase Urine Small (1+)(A) Negative [facility] RBC Urine >20(A) 0 - 2 /HPF [facility] Urine WBC 6-10 0 - 5 /HPF [facility] Urine Squamous Epithelial Cell 0-2 0 - 2 /HPF [facility] Urine Bacteria None Seen None Seen [facility] Hyaline Casts, Urine 0-2 0 - 2 /LPF [facility] 02/09/2025 8:17 PM EDT 02/09/2025 8:30 PM EDT Narrative [facility] - 02/09/2025 9:54 PM EDT Urine, Clean Catch us Generic External Data Provider LAB URINE ORDERAB LES Final Result [facility] [address] [place] [phone] * CT Abdomen Pelvis w/o Contrast (02/09/2025 6:01 PM EDT) Anatomical Region Laterality Modality Body, Pelvis, Abdomen Computed T omography 02/09/2025 6:01 PM EDT Narrative 02/09/2025 6:02 PM EDT ? [facility] ?[address] ?[place] [address] ? CT Scan Report ? Signed ? Patient: Vick Sims ?MR#: [id number] ?? [id number] ? : 1975 ?Acct:[id number] ? Age/Sex: 49 / M ?ADM Date: 02/09/25 ? Loc: HO.ED ? Attending Dr: ? Ordering Physician: Katya Escobar ?? Date of Service: 02/09/25 ?? Procedure(s): CT abdomen pelvis wo IV con ?? Accession Number(s): [id number] ? cc: [facility]; Katya Escobar ? Report Number: ?? [id number]: Total DLP = ??501.00 mGy-cm ? CLINICAL HISTORY: LLQ L flank pain, N V ? CT abdomen and pelvis without IV contrast. ? COMPARISON: None ? FINDINGS: ?? Partially visualized lung bases are unremarkable. ?? Normal gallbladder. Noncontrast appearance of the liver, spleen, pancreas ?? adrenal glands are unremarkable. ? No right-sided hydronephrosis. No right renal or ureteral calculus. ? Moderate left hydronephrosis. Nonobstructing 5 mm left renal calculus. ?? Mild proximal left hydroureter. In the proximal left ureter there is a 3 ?? mm ureteral calculus. More distal left ureter is contracted. ? Normal appendix. Mild distal colonic diverticulosis without evidence of ?? diverticulitis. Moderate to large amount of stool present within the ?? distal sigmoid colon and rectum. ?? No mesenteric or retroperitoneal lymphadenopathy. ?? Normal abdominal aorta. ? Urinary bladder is contracted. ?? No inguinal lymphadenopathy. ?? Small fat containing umbilical hernia. No acute fracture or suspicious ?? bone lesion. ? IMPRESSION: ?? 1. Proximal left ureteral 3 mm calculus causes mild left hydroureter and ?? moderate left hydronephrosis. ?? 2. Additional nonobstructing 5 mm left renal calculus. ?? 3. Pragtssw-rf-hyuot amount of stool present within the distal sigmoid ?? colon and rectum. A component of fecal impaction may be present. ? This document has been electronically signed by: Julián Garcia MD on ?? 02/09/2025 18:01:10 ? Dictated By: ?Julián Garcia MD ? Signed By: ?<Electronically signed by Julián Garcia MD in OV> ?02/09/25 1802 ? DD/ 1801 ? TD/TT: 02/09/25 1801 ? Shore Worker: ? Procedure Note Donotuseinterpreter, Image - 02/09/[address] [place] [address] [address] Scan Report Signed Patient: Vick SimsMR#: [id number] : 1975Acct:[id number] Age/Sex: 49 / MADM Date: 02/09/25 Loc: HO.ED Attending Dr: Ordering Physician: Katya Escobar Date of Service: 02/09/25 Procedure(s): CT abdomen pelvis wo IV con Accession Number(s): [id number] cc: [facility]; Katya Escobar Report Number: [id number]: Total DLP = 501.00 mGy-cm CLINICAL HISTORY: LLQ L flank pain, N V CT abdomen and pelvis without IV contrast. COMPARISON: None FINDINGS: Partially visualized lung bases are unremarkable. Normal gallbladder. Noncontrast appearance of the liver, spleen, pancreas adrenal glands are unremarkable. No right-sided hydronephrosis. No right renal or ureteral calculus. Moderate left hydronephrosis. Nonobstructing 5 mm left renal calculus. Mild proximal left hydroureter. In the proximal left ureter there is a 3 mm ureteral calculus. More distal left ureter is contracted. Normal appendix. Mild distal colonic diverticulosis without evidence of diverticulitis. Moderate to large amount of stool present within the distal sigmoid colon and rectum. No mesenteric or retroperitoneal lymphadenopathy. Normal abdominal aorta. Urinary bladder is contracted. No inguinal lymphadenopathy. Small fat containing umbilical hernia. No acute fracture or suspicious bone lesion. IMPRESSION: 1. Proximal left ureteral 3 mm calculus causes mild left hydroureter and moderate left hydronephrosis. 2. Additional nonobstructing 5 mm left renal calculus. 3. Yngpftao-ua-dsbbz amount of stool present within the distal sigmoid colon and rectum. A component of fecal impaction may be present. This document has been electronically signed by: Julián Garcia MD on 02/09/2025 18:01:10 Dictated By: Julián Garcia MD Signed By: <Electronically signed by Julián Garcia MD in OV> 02/09/251801 DD/ 00 TD/TT: 02/09/251800 Shore Worker: [facility] External Provider IMG CT PROCEDURES Edited Result - Final * Slide Review (02/09/2025 4:48 PM EDT) Slide Review VERIFIED [facility] 02/09/2025 4:48 PM EDT 02/09/2025 4:52 PM EDT Generic External Data Provider LAB BLOOD ORDERAB LES Final Result [facility] [address] [place] [address] [phone] * (ABNORMAL) CBC auto differential (02/09/2025 4:48 PM EDT) White Blood Count 13.0(H) 4.8 - 10.8 X10*3/uL [facility] Red Blood Count 4.65 4.60 - 5.80 X10*6/uL [facility] Hemoglobin 14.7 14.0 - 18.0 g/dl [facility] Hematocrit 43.2 42.0 - 52.0 % [facility] Mean Corpuscular Volume 92.9 80.0 - 98.0 fL [facility] Mean Corpuscular Hemoglobin 31.6 27.0 - 33.0 pg [facility] Mean Corpuscular HGB Conc 34.0 31.0 - 36.0 g/dl [facility] Red Cell Distribution Width 13.1 11.0 - 16.0 % [facility] Platelet Count 248 160 - 400 X10*3/uL [facility] Mean Platelet Volume 8.4(L) 9.4 - 12.4 fL [facility] Neutrophils Percent Auto 90.4(H) 45 - 73 % [facility] Imm Gran Pct Auto 0.3 0.0 - 0.4 % [facility] Lymphocytes Percent Auto 5.9(L) 20 - 40 % [facility] Monocytes Percent Auto 3.0 2 - 11 % [facility] Eosinophils Percent Auto 0.1 0 - 4 % [facility] Basophils Percent Auto 0.3 0 - 2 % [facility] NRBC Pct Auto 0.0 0.0 - 0.2 /100WBC [facility] Neutrophils Absolute Auto 11.7(H) 2.0 - 8.3 x10*3/uL [facility] Imm Gran Abs Auto 0.04(H) 0.00 - 0.03 X10*3/uL [facility] Lymphocytes Absolute Auto 0.8(L) 1.2 - 4.9 X10*3/uL [facility] Monocytes Absolute Auto 0.4 0.1 - 1.2 X10*3/uL [facility] Eosinophils Absolute Auto 0.0 0.0 - 0.4 X10*3/uL [facility] Basophils Absolute Auto 0.0 0.0 - 0.2 X10*3/uL [facility] NRBC Abs Auto 0.000 0.0 - 0.012 X10*3/uL [facility] 02/09/2025 4:48 PM EDT 02/09/2025 4:52 PM EDT us Generic External Data Provider LAB BLOOD ORDERAB LES Edited Result - Final Performing Organization Address [facility]/ZIP Co de Phone Number [facility] [address] [place] [phone] * Magnesium (02/09/2025 4:48 PM EDT) Pathologist [facility] Magnesium 2.1 1.6 - 2.6 mg/dL [facility] 02/09/2025 4:48 PM EDT 02/09/2025 4:52 PM EDT us Generic External Data Provider LAB BLOOD ORDERAB LES Final Result Performing Organization Address [facility]/ZIP Co de Phone Number [facility] [address] [place] [phone] * Lipase (02/09/2025 4:48 PM EDT) [facility] Lipase 13 8 - 78 U/L [facility] 02/09/2025 4:48 PM EDT 02/09/2025 4:52 PM EDT us Generic External Data Provider LAB BLOOD ORDERAB LES Final Result Performing Organization Address [facility] Co de Phone Number [facility] [address] [place] [phone] * Hepatic Function Panel (02/09/2025 4:48 PM EDT) Pathologist [facility] Bilirubin, Total 0.3 0.0 - 1.0 mg/dL [facility] Bilirubin, Direct 0.1 0.0 - 0.5 mg/dL [facility] Aspartate Amino Transferase 25 5 - 37 U/L [facility] Alanine Aminotransferase 16 0 - 40 U/L [facility] Total Protein 7.8 6.5 - 8.0 g/dL [facility] Albumin Level 4.4 3.5 - 5.0 g/dL [facility] Alkaline Phosphatase 57 39 - 117 U/L [facility] 02/09/2025 4:48 PM EDT 02/09/2025 4:52 PM EDT us Generic External Data Provider LAB BLOOD ORDERAB LES Final Result Performing Organization Address [facility]/ZIP Co de Phone Number [facility] [address] [place] [phone] * (ABNORMAL) Basic Metabolic Panel (02/09/2025 4:48 PM EDT) Sodium 138 135 - 145 mmol/L [facility] Potassium 4.0 3.3 - 5.1 mmol/L [facility] Chloride 107 96 - 108 mmol/L [facility] Carbon Dioxide 25 22 - 29 mmol/L [facility] Anion Gap 10(L) 12 - 20 [facility] Urea Nitrogen (BUN) 17(H) 9 - 16 mg/dL [facility] Creatinine, Serum 1.02 0.5 - 1.4 mg/dL [facility] Creatinine Clr Calc Pharmacy 79.9 [facility] Comment:eGFR (calculated fro m the MDRD study equation) and eCrCl(calculated from the Cockcroft-Gault equation) are based ondifferent parameters and may not yield comparable results.If eCrCl result is absurd, please check patient'sheight/weight. Estimated Glomerular Filt Rate >60 [facility] Comment:Chronic Kidney Disea se: Estimated GFR < 60 mL/min/1.08o2Cnikcb Kidney Disease: Estimated GFR < 15 mL/min/1.73m2 Glucose 132(H) 60 - 115 mg/dL [facility] Calcium 9.4 8.4 - 10.2 mg/dL [facility] 02/09/2025 4:48 PM EDT 02/09/2025 4:52 PM EDT us Generic External Data Provider LAB BLOOD ORDERAB LES Final Result Performing Organization Address [facility]/ZIP Co de Phone Number [facility] [address] [place] [phone] from Last 3 Months Insurance [facility] C3
--- OUTSIDE RECORDS SUMMARY | 2025-03-15 18:13 | XMS_ITS | Encounter Summary ---
Author Organization [employer] Address [address] [facility] [address] [place] [address] Care Team Providers Care Client Service Representative Name Role Phone Unavailable Primary Care Provider Unavailabl e Reason for Visit * Reason Comments Med Refill Encounter Details Date Type Department Care Team (Late st Contact Info) Description 09/11/2024 Refill [facility] [address] [place] [address] Fabian Hanson MD [address] [place] [address] Social History Tobacco Use Types Packs/Day Years Used Date Smoking Tobacco: Every Day Cigarettes Smokeless Tobacco: Never Alcohol Use Standard Drinks/Week Comments Not Currently 0 (1 standard drink = 0.6 oz pur e alcohol) Sex and Gender Information Value Date Recorded Sex Assigned at Male 09/17/2022 10:17 AM EDT Legal Sex Male 10:17 AM EDT Gender Identity Male 08/05/2024 10:44 AM EDT Sexual Orientation Straight 08/05/2024 10 :44 AM EDT documented as of this encounter Plan of Treatment Not on file documented as of this encounter Visit Diagnoses Not on filedocumented in this encounter
== END 2025-03-15 17:57 | disposition home or self-care (01) ==
PROVIDERS: Emergency Provider Emergency Medicine
DX: S01.01XA Laceration without foreign body of scalp, initial encounter (principal); S01.112A Laceration without foreign body of left eyelid and periocular area, initial encounter; R51.9 Headache, unspecified; W01.10XA Fall on same level from slipping, tripping and stumbling with subsequent striking against unspecified object, initial encounter; Y93.9 Activity, unspecified; Y92.9 Unspecified place or not applicable; Y99.8 Other external cause status; Z23 Encounter for immunization
CPT/HCPCS: 12002; 12011; 70450; 70486; 90471; 90715; 99283; 99284

== ENCOUNTER → 2025-03-15 15:25 | Outpatient (BNV) | payer MEDICAID, SELFPAY | PROVIDERS: Emergency Provider Emergency Medicine; Visit Provider Radiology Diagnostic Radiology | DX: H05.222 Edema of left orbit (principal); J34.89 Other specified disorders of nose and nasal sinuses; R51.9 Headache, unspecified | CPT/HCPCS: 70450; 70486 ==

== ENCOUNTER 2025-10-24 02:16 | Emergency (ER) | payer MEDICAID, SELFPAY ==
[2025-10-24 02:23] VITALS: BP 127/83; PULSE 98; RESP 20; TEMP 36.9; O2SAT 97; BMI 30.7
[2025-10-24 04:13] VITALS: BP 129/93; PULSE 100; RESP 18; TEMP 36.7; O2SAT 94
--- NOTE | 2025-10-24 04:31 | ED.URI ---
HPI - URI/Sore Throat General Chief Complaint: Upper Respiratory Symptoms Stated Complaint: General Medical Time Seen by Provider: 10/24/25 04:29 Source: patient Mode of arrival: ambulatory Limitations: no limitations History of Present Illness ED Provider: Luis LONGORIA HPI Narrative: The patient is a 50-year-old male presenting to the ED for evaluation of worsening viral URI symptoms including sinus congestion, sore throat, and headache which is worse with cough. The patient was seen at an urgent care clinic approximately 3 days ago and started on amoxicillin for presumed sinusitis. He reports that his symptoms have been present ?a long time? prior to that visit and have not improved despite use of the antibiotic. Patient reports significant sinus pressure, difficulty sleeping, and a productive sounding cough. He suffered a single episode of post-tussive vomiting yesterday, no additional vomiting, denies any spontaneous vomiting. The patient denies associated pleurisy, shortness of breath at rest, abdominal pain, recent sick contacts, or recent trauma. The patient has not taken any other medications besides amoxicillin, denies taking any anti-inflammatories because urgent care did not prescribe them. Related Data Home Medications ?Medication ?Instructions ?Recorded ?Confirmed albuterol sulfate 90 mcg/actuation 2 puff inhalation Q4H PRN sob 08/14/24 aerosol inhaler (Ventolin HFA) nicotine 7 mg/24 hr daily 1 patch topical QAM 08/14/24 transdermal patch oxycodone 5 mg tablet 5 mg PO Q6H PRN pain 08/14/24 prednisone 20 mg tablet 40 mg PO DAILY 08/14/24 Previous Rx's ?Medication ?Instructions ?Recorded hydrocodone 5 mg-acetaminophen 325 1 tab PO Q8H PRN pain, severe 3 02/09/25 mg tablet days #9 tabs naproxen 500 mg tablet 500 mg PO BID PRN pain 10 days #20 02/09/25 tabs polyethylene glycol 3350 17 17 g PO DAILY #119 grams 02/09/25 gram/dose oral powder (Miralax) sodium phosphates 19 gram-7 118 ml NM BEDTIME PRN constipation 02/09/25 gram/118 mL enema (Fleet Enema) #532 mL tamsulosin 0.4 mg capsule (Flomax) 0.4 mg PO DAILY #14 caps 02/09/25 acetaminophen 500 mg capsule 1,000 mg (2 x 500 mg) PO .q8 PRN 10/24/25 fever or pain #30 caps ibuprofen 600 mg tablet 600 mg PO Q8H PRN fever or pain 10/24/25 #30 tabs Allergies Allergy/AdvReac Type Severity Reaction Status Date / Time No Known Allergies Allergy Verified 10/24/25 02:26 Review of Systems Review of Systems: Yes all other systems are reviewed and are negative PMFSH Social History Social History Advance Directives: No Advance Directives Information Provided: Yes Do you have a plan to hurt others: No Plan Current occupation: rt handed Physical Exam Vital Signs: Vital Signs: Last Vital Signs Temp 98.0 F 10/24/25 04:13 Pulse 100 10/24/25 04:13 Resp 18 10/24/25 04:13 BP 129/93 H 10/24/25 04:13 Pulse Ox 94 10/24/25 04:13 O2 Del Method Room Air 10/24/25 04:13 BMI result Body Mass Index 30.7 CONSTITUTIONAL: The patient appears non-toxic, well nourished and in no acute distress. Vital signs as documented. HEAD: Atraumatic, normocephalic. EYES: EOMs grossly intact, pupils equal, conjunctiva clear, no exudate. ENT: Nares patent, nares sound congested however there is no active rhinorrhea. Airway patent, no audible stridor, visible mucosa is pink and moist without noted lesions. Posterior pharynx demonstrates midline nonedematous uvula, there is [id number] bilateral tonsillar swelling and erythema, no exudate, no trismus or voice changes, no stridor. NECK: Trachea is midline, no obvious masses or gross abnormalities. CHEST: Symmetric movement, normal appearance. LUNGS: LS present and CTAB, no w/r/r. Non-labored work of breathing. CARDIAC: Regular Rhythm, S1/S2 appreciated, no murmurs, rubs or gallops. ABDOMEN: Abdomen soft and non-tender x4 quadrants, no palpable masses or organomegaly. : Deferred. EXTREMITIES: Normal tone, moves all extremities spontaneously without reported pain. No obvious acute injury or deformity noted. NEURO: Alert and oriented x3, CN II-XII appear grossly intact. Cerebellar Functioning grossly intact. No obvious sensory or motor deficits. Speech clear and appropriate. PSYCH: normal affect, appropriate eye contact, fluid speech, with appropriate response to questioning. No reported suicidality or homicidality. SKIN: Warm, dry, color appropriate, normal turgor. No rashes noted. Medical Decision Making Medical Decision Making [facility] Narrative: 4:53 AM 10/24/2025 (Elizabeth LONGORIA): The patient is a 50-year-old male presenting to the ED for evaluation of worsening viral URI symptoms including sinus congestion, sore throat, and headache which is worse with cough. The patient was seen at an urgent care clinic approximately 3 days ago and started on amoxicillin for presumed sinusitis. He reports that his symptoms have been present ?a long time? prior to that visit and have not improved despite use of the antibiotic. Patient reports significant sinus pressure, difficulty sleeping, and a productive sounding cough. He suffered a single episode of post-tussive vomiting yesterday, no additional vomiting, denies any spontaneous vomiting. The patient denies associated pleurisy, shortness of breath at rest, abdominal pain, recent sick contacts, or recent trauma. The patient has not taken any other medications besides amoxicillin, denies taking any anti-inflammatories because urgent care did not prescribe them. On exam the patient has [id number] sinus tenderness to percussion, posterior pharynx demonstrates bilateral tonsillar swelling without exudate. The patient's uvula is midline and nonedematous, no stridor, pooling secretions, or evidence of respiratory distress. The patient will be instructed to continue amoxicillin, and we will treat with a single dose of Decadron, and discharged with anti-inflammatories and supportive care. Admission/Observation Consideration of admission/observation: Escalation of care including admission/observation considered External Record Review External record reviewed: Outpatient record and Prior outpatient labs Prescription Management I considered prescription management with: Pain Medication Discharge Plan Discharge Clinical Impression: Sinusitis Qualifiers: Sinusitis location: frontal Chronicity: acute Recurrence: not specified as recurrent Qualified Code(s): J01.10 - Acute frontal sinusitis, unspecified Patient Disposition: Home, Self-Care Instructions: Sinusitis (ED) Additional Instructions: Thank you for choosing [facility] Emergency Department for your care today. Thankfully your exam is not concerning for any posterior pharyngeal abscess or other emergent process. At this time there is no indication for admission to the hospital or continued ED observation, and it is safe to discharge you home. Your presentation does show congestion of your nasal passages and throat. We have treated you with a single dose of Decadron as well as anti-inflammatories which should reduce the swelling and provide you significant relief in your symptoms. It is extremely important however that you continue taking the amoxicillin prescribed by your urgent care until it is finished. You should take alternating (staggered) doses of ibuprofen 600mg and Tylenol 1000mg every 4 hours for the next 2-3 days and then as needed for any additional pain. Please stay well hydrated and get plenty of rest. Please follow up with your primary care physician for re-evaluation, additional management of your symptoms, and continued preventative care. If you do not have a primary care physician, please call the [facility] at [phone] to establish a new primary care physician. While waiting to establish your new primary care physician, you can call our Walk-in [facility] at [phone] for non-emergency needs. Please return to the emergency department if you develop a severe or sudden change in your symptoms, a fever over 100.4 that does not improve with Tylenol or Ibuprofen, recurrent vomiting, or any other new or worsening symptoms or concerns. Prescriptions: New ibuprofen 600 mg tablet 600 mg PO Q8H PRN (Reason: fever or pain) Qty: 30 0RF acetaminophen 500 mg capsule 1,000 mg PO .q8 PRN (Reason: fever or pain) Qty: 30 0RF No Action hydrocodone-acetaminophen 5-325 mg tablet 1 tab PO Q8H PRN (Reason: pain, severe) 3 Days Qty: 9 0RF Rx Instructions: Partial Fill upon patient request. tamsulosin [Flomax] 0.4 mg capsule 0.4 mg PO DAILY Qty: 14 0RF naproxen 500 mg tablet 500 mg PO BID PRN (Reason: pain) 10 Days Qty: 20 0RF Fleet Enema 19-7 gram/118 mL enema 118 ml NM BEDTIME PRN (Reason: constipation) Qty: 532 0RF polyethylene glycol 3350 [Miralax] 17 gram/dose powder 17 g PO DAILY Qty: 119 0RF prednisone 20 mg tablet 40 mg PO DAILY albuterol sulfate [Ventolin HFA] 90 mcg/actuation HFA aerosol inhaler 2 puff INHALATION Q4H PRN (Reason: sob) nicotine 7 mg/24 hr patch 24 hour 1 patch topical QAM oxycodone 5 mg tablet 5 mg PO Q6H PRN (Reason: pain) Referrals: [facility] [Primary Care Provider, Medical] Clinical Impression: Sinusitis Print Language: Romanian
[2025-10-24 05:29] VITALS: BP 122/61; PULSE 98; RESP 20; TEMP 36.6; O2SAT 96
== END 2025-10-24 05:30 | disposition home or self-care (01) ==
PROVIDERS: Emergency Provider Emergency Medicine
DX: J01.10 Acute frontal sinusitis, unspecified (principal); R05.9 Cough, unspecified; Z79.899 Other long term (current) drug therapy
CPT/HCPCS: 99283; 99284; J8540